=== PATIENT | male | born 1995 | race Caucasian/White ===

== ENCOUNTER 2022-04-19 21:44 | Emergency (ER) | payer SELFPAY ==
[2022-04-19 21:58] VITALS: BP 143/93; PULSE 92; RESP 18; TEMP 36.8; O2SAT 98; BMI 36.1
--- NOTE | 2022-04-19 22:06 | ED_ITS ---
HPI - Burn/Smoke Inhalation General: Chief complaint: Burn/Smoke Inhalation Stated complaint: Burn on right hand, middle finger Time Seen by Provider: 04/19/22 22:03 History of Present Illness: Patient is a 26-year-old male comes to the ED with burn to right middle finger. 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 Some grease splashed up and got on his right middle finger causing some redness, blistering and pain. Patient is not up-to-date on tetanus. Associated symptoms: Deny chest pain, fever(s), headache(s), nausea, neck pain or vomiting Review of Systems Const: Denies: fever(s), chills or fatigue Eyes: Denies: change in vision or eye discomfort ENMT: Denies: throat pain, odynophagia, nasal discharge or nasal congestion Card: Denies: chest pain, palpitations, edema, swelling of feet/ankles, dyspnea on exertion or orthopnea Resp: Denies: dyspnea, productive cough or non-productive cough GI: Denies: abdominal pain, nausea, vomiting, diarrhea, constipation or hematochezia : Denies: flank pain, difficulty urinating, dysuria or hematuria Musc: Denies: neck pain, back pain or extremity swelling Skin/Breast: Reports: new lesions (Second-degree burn to distal end of right middle finger); Denies: rash Neuro: Denies: headache(s), numbness in extremities or weakness in extremities PFS ED PFSH: Medical History No pertinent family history Surgical History No pertinent past surgical history Physical Exam Const: COMMON NORMALS: no acute distress, patient oriented x3, healthy appearing and alert GENERAL APPEARANCE: cooperative and comfortable HENMT: COMMON NORMALS: normocephalic HEAD & SCALP: normocephalic MOUTH: Normal oral and palatal mucosa present THROAT: posterior oropharynx normal and uvula midline Neck/C-Spine: COMMON NORMALS: supple GENERAL: Yes normal visual inspection Resp: COMMON NORMALS: normal respiratory effort, No retractions, No use of accessory muscles and clear to auscultation bilaterally AUSCULTATION: clear to auscultation bilaterally Cardio: COMMON NORMALS: regular rate, regular rhythm, S1 normal heart sound present, S2 normal heart sound present, No gallops present (Cardio), No clicks present (Cardio), No murmurs present (Cardio) and Peripheral pulses 2+ throughout RATE: regular rate RHYTHM: regular rhythm HEART SOUNDS: S1 normal heart sound present and S2 normal heart sound present PERIPHERAL PULSES: Peripheral pulses 2+ throughout GI: COMMON NORMALS: Normal to inspection, nondistended, normoactive bowel sounds present, Soft to palpation, non-tender and no masses PALPATION: Yes Soft to palpation : COMMON NORMALS: Yes no CVA tenderness BLADDER/KIDNEY EXAM: Yes no CVA tenderness Back/Pelvis: COMMON NORMALS: no CVA tenderness Extremity: NARRATIVE EXTREMITY EXAM: Right hand?distal end of middle finger?second-degree burn with intact blister noted. No damage to nail or nailbed noted. GENERAL: Yes normal exam except as noted Neuro: COMMON NORMALS: patient oriented x3 and moves all extremities SENSORIUM/ORIENTATION: Yes alert Skin: GENERAL SKIN EXAM: dry skin Course Vital Signs: Vital signs: Vital Signs Temperature 98.1 F 04/19/22 22:51 Pulse Rate 77 04/19/22 22:51 Respiratory Rate 18 04/19/22 22:51 Blood Pressure 141/79 04/19/22 22:51 Pulse Oximetry 99 04/19/22 22:51 MDM - Burn/Smoke Inhalation Medical Decision Making Patient 26-year-old male who comes to the ED with burn to distal end of right middle finger. Patient was at work and hot grease caused burn to finger. Vitals are stable and patient appears in no acute distress or pain. Patient has second-degree burn with intact blister. Patient was given updated tetanus here in the ED. Triple antibiotic ointment was applied to finger by nurse and then it was bandaged. Patient was stable for discharge home and sent with a prescription for triple antibiotic ointment. He was instructed on how to care for burn. Return to ED precautions given. Patient understood and agreed with plan. Discharge Plan Discharge Patient Disposition: Home Clinical Impression: Second degree burn of finger Qualifiers: Encounter type: initial encounter Laterality: right Qualified Code(s): T23.221A - Burn of second degree of single right finger (nail) except thumb, initial encounter Condition: Stable Prescriptions: New Triple Antibiotic 3.5mg-400 unit- 5,000 unit/gram ointment 1 applic topical DAILY Qty: 28 0RF Rx Instructions: Apply on burn finger daily until completely healed. Discharge Orders: Discharge ED (Routine); Ordered 04/19/22 Ordered By: Elian Caldwell Discharge Diet: Regular Discharge Activity: Increase activity as tolerated Patient Instructions: Second-Degree Burn (ED) Activity Restrictions/Additional Instructions: Follow-up with medical provider as directed. Clean burn with soap and water daily and then apply triple antibiotic ointment and keep burn covered with bandage. Do not pop any of the blisters and let them pop naturally. Return to the ER or your medical provider if condition worsens. Please read and understand discharge instructions. Thank you for choosing [facility] for your healthcare needs today. Please realize this is an emergency room and that we are providing you with a medical screening exam and this may not be complete and all inclusive of all the testing and or work up that you may need to determine your ailment or severity of your illness. It is very important that you follow up as instructed or that you return to the Emergency Department should you have concerns or if your condition changes or worsens in any way. Coding Level of Care Code ED Tests Superintendent for Nate Yarbrough
[2022-04-19] MEDS: neomycin-poly-bacitracin oint 0.9 gm Pkt 1 APPLIC TOPICAL (22:29)
[2022-04-19] MEDS: tetanus-dipt-pertussis 0.5 mL SDV IM (22:30)
[2022-04-19 22:51] VITALS: BP 141/79; PULSE 77; RESP 18; TEMP 36.7; O2SAT 99
== END 2022-04-19 22:53 | disposition home or self-care (01) ==
PROVIDERS: Emergency Provider Physician Assistant
DX: T23.221A Burn of second degree of single right finger (nail) except thumb, initial encounter (principal); X10.2XXA Contact with fats and cooking oils, initial encounter; Y99.0 Civilian activity done for income or pay; Z23 Encounter for immunization
CPT/HCPCS: 90471; 90715; 99283

== ENCOUNTER → 2022-06-28 11:41 | Outpatient (BNVA) | payer MEDICAID, SELFPAY | PROVIDERS: Visit Provider Nurse Practitioner Family | DX: I10 Essential (primary) hypertension (principal); R45.86 Emotional lability; J32.9 Chronic sinusitis, unspecified; F90.9 Attention-deficit hyperactivity disorder, unspecified type | CPT/HCPCS: 80053; 80061; 84443; 85025 ==

== ENCOUNTER → 2022-07-10 12:05 | Outpatient (BNVA) | payer MEDICAID, SELFPAY | PROVIDERS: Visit Provider Nurse Practitioner Family | DX: R10.9 Unspecified abdominal pain (principal); K59.00 Constipation, unspecified; I10 Essential (primary) hypertension | CPT/HCPCS: 80053 ==

== ENCOUNTER 2022-07-19 14:46 | Emergency (ER) | payer MEDICAID, SELFPAY ==
[2022-07-19 15:10] VITALS: BMI 35.5
--- NOTE | 2022-07-19 16:00 | ED_ITS ---
HPI - General Adult General: Chief complaint: General Medical Stated complaint: Splinter in fingers and stomach Time Seen by Provider: 07/19/22 15:23 Source: patient Mode of arrival: ambulatory Limitations: no limitations History of Present Illness: 26-year-old male presents to the ER today for splinters in his hands and also in his abdomen. Patient reports he was working with wood yesterday and felt a large 1 going to his abdomen. He has tried picking it out but been unable to get it out. He reports he has small splinters in his hands. He has not attempted to get these out at this time. Patient reports last tetanus shot is unknown. Review of Systems General: Reports: 10 or more systems reviewed and unremarkable except in HPI and below PFSH ED PFSH: Medical History ADHD Hypertension Mood swings No pertinent family history Surgical History No pertinent past surgical history Social History Smoking and tobacco status: never smoked Alcohol intake: current Alcohol intake frequency: holidays/special occasions only Alcohol type: wine Lives independently: No Household members: significant other and family Marital status: Life Partner Number of children: 3 service: No Current occupational status: employed History of recent travel: No Current gender identity: Male Special [place] needs: No Physical Exam Const: COMMON NORMALS: no acute distress, average body habitus, patient oriented x3, no limitations, healthy appearing, alert and well nourished HENMT: COMMON NORMALS: normocephalic, atraumatic, external ears normal, Normal external nose present and moist oral mucous membranes HEAD & SCALP: normocephalic and atraumatic NOSE: Normal external nose present EXTERNAL EAR: Yes external ears normal Eye: COMMON NORMALS: conjunctivae normal CONJUNCTIVA: Yes conjunctivae normal Resp: COMMON NORMALS: normal respiratory effort EFFORT & INSPECTION: Yes able to speak in complete sentences Cardio: COMMON NORMALS: regular rate and regular rhythm RATE: regular rate RHYTHM: regular rhythm Extremity: COMMON NORMALS: normal to inspection and full ROM Neuro: COMMON NORMALS: patient oriented x3 SENSORIUM/ORIENTATION: Yes alert Psych: COMMON NORMALS: mental status grossly normal, Normal thought process present and cooperative THOUGHT PROCESS: Normal thought process present Skin: NARRATIVE SKIN EXAM: A foreign object was palpated in the left lower abdomen. There is also 3 small splinters noted in patient's hands. No obvious infection. There are abrasions around the foreign body in the abdomen as patient has tried to remove it. Procedures Foreign Body Removal Site: other (abdomen) Description of foreign body: other (piece of wood) Sedation/Analgesia: other (lidocaine with epi) Technique: removal with forceps and incision made to facilitate removal Confirmed by:: direct visualization and palpation Complications: none Course ED course: Patient presents to the ER with several splinters. Patient reports the worst pain is in his abdomen and he has tried removing it so now it is very tender. He also has 3 small ones in his hands. We will attempt removal in the ER today. MDM - General Adult Medical Decision Making See procedure note. A very minimal incision, less than a half of centimeter was made over the tip of the foreign body in the abdomen after administration of lidocaine with epi. Using forceps, the foreign body was removed in its entirety. It was approximately 2-1/2 cm long. Patient tolerated it well. The 3 splinters in the hands were also removed with a 19-gauge needle. Tdap was updated today. Discussed with patient to clean wounds with soapy water once daily. Follow-up with PCP in 1 week. Return to the ER with new or worsening symptoms. Patient verbalized understanding and was in agreement with the treatment plan. Critical Care Time Critical Care Time: Critical Care Time: No Discharge Plan Discharge Patient Disposition: Home Clinical Impression: Splinter in skin Condition: Stable Prescriptions: No Action trazodone 100 mg tablet 100 mg PO DAILY amlodipine 10 mg tablet 10 mg PO DAILY Qty: 90 1RF divalproex [Depakote] 250 mg tablet,delayed release (DR/EC) 250 mg PO DAILY Qty: 90 0RF fluticasone propionate [Flonase Allergy Relief] 50 mcg/actuation spray,suspension 1 spray intranasal BID Qty: 16 2RF Rx Instructions: administer into each nostril cetirizine [Zyrtec] 10 mg tablet 10 mg PO DAILY PRN (Reason: allergy symptoms) Qty: 90 0RF polyethylene glycol 3350 [Miralax] 17 gram/dose powder 4 g PO DAILY 90 Days Qty: 510 1RF Discharge Orders: Discharge ED (Routine); Ordered 07/19/22 Ordered By: Lawanda Alves Discharge Diet: Usual diet Discharge Activity: Resume usual activity Patient Instructions: Opioid Safety, Pain Management Activity Restrictions/Additional Instructions: Keep wound clean. Follow-up with PCP in 7 to 10 days. Return to the ER with new or worsening symptoms. Coding Level of Care Code ED Pan Puller for Nate Yarbrough
[2022-07-19] MEDS: tetanus-dipt-pertussis 0.5 mL SDV IM (16:03)
[2022-07-19 16:23] VITALS: BP 144/90; PULSE 86; RESP 17; TEMP 36.7; O2SAT 98
== END 2022-07-19 16:14 | disposition home or self-care (01) ==
PROVIDERS: Emergency Provider Physician Assistant
DX: S30.851A Superficial foreign body of abdominal wall, initial encounter (principal); W45.8XXA Other foreign body or object entering through skin, initial encounter; I10 Essential (primary) hypertension; Z23 Encounter for immunization
CPT/HCPCS: 10120; 90471; 90715; 99282

== ENCOUNTER → 2022-09-03 16:42 | Outpatient (BNVA) | payer MEDICAID, SELFPAY | PROVIDERS: Visit Provider Nurse Practitioner Family | DX: R50.9 Fever, unspecified (principal); J10.1 Influenza due to other identified influenza virus with other respiratory manifestations | CPT/HCPCS: 87400; 87426 ==

== ENCOUNTER 2022-11-26 08:51 | Emergency (ER) | payer MEDICAID, SELFPAY ==
[2022-11-26 08:58] VITALS: BP 135/59; PULSE 86; RESP 16; TEMP 36.7; O2SAT 99; BMI 37.1
--- NOTE | 2022-11-26 16:22 | W.ED.NAVMDI ---
HPI - Nausea/Vomiting/Diarrhea General: Chief complaint: Nausea/Vomiting/Diarrhea Stated complaint: n/v/d Time Seen by Provider: 11/26/22 08:58 History of Present Illness: Patient reports recently being at [facility] over the weekend. He reports he developed nausea vomiting diarrhea on Friday. He reports that he has been going numerous times a day but today is slightly better although he still vomited and had 1 diarrhea stool today. He denies any fever, chills. He denies any urinary symptoms. He does not think he ate anything bad because everybody ate the same stuff is him and nobody else is ill. He reports that he did drink alcohol but he does not feel like this is a typical hangover. Associated nausea: Yes Associated symtoms: Reports nausea; Denies change in vision, chest pain, dysuria, headache(s), palpitations or syncope Review of Systems Const: Denies: fever(s), chills or body aches Eyes: Denies: change in vision or blurry vision ENMT: Denies: throat pain Card: Denies: chest pain, palpitations, irregular heart rhythm, lightheadedness or syncope Resp: Denies: dyspnea, productive cough or non-productive cough GI: Reports: abdominal pain, nausea and vomiting : Denies: flank pain, dysuria, urinary frequency, urinary urgency or urinary hesitancy Musc: Denies: neck pain or back pain Neuro: Denies: headache(s), numbness in extremities or weakness in extremities PFSH ED PFSH: Medical History ADHD Hypertension Mood swings No pertinent family history Surgical History No pertinent past surgical history Social History Smoking and tobacco status: never smoked Alcohol intake: current Alcohol intake frequency: holidays/special occasions only Alcohol type: wine Lives independently: No Household members: significant other and family Marital status: Life Partner Number of children: 3 service: No Current occupational status: employed Current gender identity: Male Special [place] needs: No Physical Exam Const: COMMON NORMALS: no acute distress, patient oriented x3 and alert GENERAL APPEARANCE: cooperative ORIENTATION/CONSCIOUSNESS: Yes awake, Yes oriented to person, Yes oriented to place and Yes oriented to time HENMT: COMMON NORMALS: EAC's normal and TM's normal bilaterally EXTERNAL AUDITORY CANAL: EAC's normal TYMPANIC MEMBRANE: TM's normal bilaterally MOUTH: Normal oral and palatal mucosa present THROAT: posterior oropharynx normal Eye: COMMON NORMALS: Equal, round and reactive pupils present, EOMs intact bilaterally and conjunctivae normal GENERAL EYE: appearance normal, both eyes and all related structures ALIGNMENT: Yes alignment normal CONJUNCTIVA: Yes conjunctivae normal SCLERA: sclerae normal PUPIL: Yes Equal, round and reactive pupils present Neck/C-Spine: COMMON NORMALS: full ROM Resp: COMMON NORMALS: normal respiratory effort, No retractions, No use of accessory muscles and clear to auscultation bilaterally EFFORT & INSPECTION: Yes symmetric chest movement AUSCULTATION: clear to auscultation bilaterally Cardio: COMMON NORMALS: regular rate, regular rhythm, S1 normal heart sound present and S2 normal heart sound present RATE: regular rate RHYTHM: regular rhythm HEART SOUNDS: S1 normal heart sound present and S2 normal heart sound present GI: COMMON NORMALS: Normal to inspection, nondistended, normoactive bowel sounds present, Soft to palpation, non-tender, No hepatosplenomegaly present, no masses and no bruits INSPECTION: Yes normal to inspection PALPATION: Yes Soft to palpation and Yes No hepatosplenomegaly present : COMMON NORMALS: Yes no CVA tenderness BLADDER/KIDNEY EXAM: Yes no CVA tenderness Back/Pelvis: COMMON NORMALS: no CVA tenderness Neuro: COMMON NORMALS: patient oriented x3 SENSORIUM/ORIENTATION: Yes alert, Yes oriented to person, Yes oriented to place and Yes oriented to time Psych: COMMON NORMALS: cooperative Course Vital Signs: Vital signs: Vital Signs Temperature 98.0 F 11/26/22 08:58 Pulse Rate 86 11/26/22 08:58 Respiratory Rate 16 11/26/22 08:58 Blood Pressure 135/59 11/26/22 08:58 Pulse Oximetry 99 11/26/22 08:58 Oxygen Delivery Me thod 11/26/22 08:58 MDM - Nausea/Vomiting/Diarrhea Medical Decision Making Patient is in for nausea and vomiting. He reports that he has been vomiting but seems to be getting a little bit better today. He does wish to have a work note because he had to miss work due to vomiting. He feels like he is able to keep liquids down at this time. He is requesting to be discharged to home. Discussed conservative treatments at home including a brat diet. Follow-up with primary care provider as needed. Return to the ER for new or worsening symptoms Discharge Plan Discharge Patient Disposition: Home Clinical Impression: Gastroenteritis Condition: Stable Prescriptions: No Action oseltamivir [Tamiflu] 75 mg capsule 75 mg PO BID 5 Days Qty: 10 0RF trazodone 100 mg tablet 100 mg PO DAILY amlodipine 10 mg tablet 10 mg PO DAILY Qty: 90 1RF fluticasone propionate [Flonase Allergy Relief] 50 mcg/actuation spray,suspension 1 spray intranasal BID Qty: 16 2RF Rx Instructions: administer into each nostril cetirizine [Zyrtec] 10 mg tablet 10 mg PO DAILY PRN (Reason: allergy symptoms) Qty: 90 0RF polyethylene glycol 3350 [Miralax] 17 gram/dose powder 4 g PO DAILY 90 Days Qty: 510 1RF divalproex 250 mg tablet,delayed release (DR/EC) See Rx Instructions .ROUTE .COMPLEX Qty: 90 0RF Dose Instruction: TAKE ONE TABLET BY MOUTH DAILY Rx Instructions: TAKE ONE TABLET BY MOUTH DAILY Discharge Orders: Discharge ED (Routine); Ordered 11/26/22 Ordered By: Susanne Maciel Discharge Diet: Advance as tolerated Discharge Activity: Increase activity as tolerated Patient Instructions: Gastroenteritis (ED) Activity Restrictions/Additional Instructions: Make sure that you are staying well-hydrated. I recommend a brat diet (bananas, rice, applesauce, dry toast) to help with vomiting and diarrhea. Follow-up with your primary care provider as needed. Return to the ER for new or worsening symptoms including inability to keep liquids down, abdominal pain, fever, worsening vomiting. Stand Alone Forms: Work/School Release Coding Level of Care Code ED Fire Alarm Mechanic for Nate Yarbrough
== END 2022-11-26 09:39 | disposition home or self-care (01) ==
PROVIDERS: Emergency Provider Nurse Practitioner Family
DX: K52.9 Noninfective gastroenteritis and colitis, unspecified (principal); I10 Essential (primary) hypertension
CPT/HCPCS: 99282

== ENCOUNTER 2022-12-07 17:42 | Emergency (ER) | payer MEDICAID, SELFPAY ==
[2022-12-07 17:44] VITALS: BP 147/92; PULSE 80; RESP 16; TEMP 36.6; O2SAT 97
--- NOTE | 2022-12-07 18:05 | ED_ITS ---
HPI - URI/Sore Throat General: Chief Complaint: Upper Respiratory Infection Stated Complaint: Cough, congestion,not feeling well Time Seen by Provider: 12/07/22 18:04 History of Present Illness: 26-year-old male patient comes in today for complaints of cough and congestion not feeling well for the last 3 days. Patient comes in needing a work note for 2 more days in order to get over this illness. Patient appears nontoxic. Patient appears in mild to no pain. Patient has a history of ADHD and hypertension. Associated symptoms: Reports fever(s) and nasal congestion; Deny chest pain, nausea or vomiting Review of Systems Const: Reports: fever(s) ENMT: Reports: nasal congestion Card: Denies: chest pain Resp: Reports: non-productive cough GI: Denies: nausea or vomiting Skin/Breast: Denies: rash PFSH ED PFSH: Medical History ADHD Hypertension Mood swings No pertinent family history Surgical History No pertinent past surgical history Social History Smoking and tobacco status: never smoked Alcohol intake: current Alcohol intake frequency: holidays/special occasions only Alcohol type: wine Lives independently: No Household members: significant other and family Marital status: Life Partner Number of children: 3 service: No Current occupational status: employed Current gender identity: Male Special [place] needs: No Physical Exam Const: COMMON NORMALS: alert HENMT: COMMON NORMALS: normocephalic and atraumatic HEAD & SCALP: normocephalic and atraumatic NOSE: Normal nares present MOUTH: Normal oral and palatal mucosa present Neck/C-Spine: COMMON NORMALS: full ROM Resp: COMMON NORMALS: normal respiratory effort and clear to auscultation bilaterally AUSCULTATION: clear to auscultation bilaterally Cardio: COMMON NORMALS: regular rate and regular rhythm RATE: regular rate RHYTHM: regular rhythm Extremity: COMMON NORMALS: normal to inspection Neuro: SENSORIUM/ORIENTATION: Yes alert Skin: COMMON NORMALS: no rashes or lesions noted GENERAL SKIN EXAM: no rashes or lesions noted Course Vital Signs: Vital signs: Vital Signs Temperature 97.8 F 12/07/22 17:44 Pulse Rate 80 03/04/23 17:44 Respiratory Rate 16 12/07/22 17:44 Blood Pressure 147/92 12/07/22 17:44 Pulse Oximetry 97 12/07/22 17:44 Oxygen Delivery Me thod 12/07/22 17:44 MDM - URI/Sore Throat Medical Decision Making 26-year-old male patient comes in today for complaints of upper respiratory i nfection. On exam posterior pharynx slightly erythematous. Bilateral TMs are clear. Lungs are clear to auscultation. Skin is warm and dry. Vital signs are normal. Differential diagnosis includes but not limited to viral syndrome, upper respiratory infection, malingering. Reviewed exam with patient with recommendations for treatment and follow-up. Patient reported understanding agreed to plan. Discharge Plan Discharge Patient Disposition: Home Clinical Impression: Upper respiratory infection Qualifiers: URI type: unspecified URI Qualified Code(s): J06.9 - Acute upper respiratory infection, unspecified Condition: Stable Prescriptions: No Action oseltamivir [Tamiflu] 75 mg capsule 75 mg PO BID 5 Days Qty: 10 0RF trazodone 100 mg tablet 100 mg PO DAILY amlodipine 10 mg tablet 10 mg PO DAILY Qty: 90 1RF fluticasone propionate [Flonase Allergy Relief] 50 mcg/actuation spray,suspension 1 spray intranasal BID Qty: 16 2RF Rx Instructions: administer into each nostril cetirizine [Zyrtec] 10 mg tablet 10 mg PO DAILY PRN (Reason: allergy symptoms) Qty: 90 0RF polyethylene glycol 3350 [Miralax] 17 gram/dose powder 4 g PO DAILY 90 Days Qty: 510 1RF divalproex 250 mg tablet,delayed release (DR/EC) See Rx Instructions .ROUTE .COMPLEX Qty: 90 0RF Dose Instruction: TAKE ONE TABLET BY MOUTH DAILY Rx Instructions: TAKE ONE TABLET BY MOUTH DAILY Discharge Orders: Discharge ED (Routine); Ordered 12/07/22 Ordered By: Colt Green Discharge Diet: Usual diet Discharge Activity: Increase activity as tolerated Patient Instructions: Upper Respiratory Infection (ED) Activity Restrictions/Additional Instructions: Drink plenty of water and fluids. Use acetaminophen and/or ibuprofen for pain and fever. Follow-up with primary care as needed. Return to ED for worsening symptoms such as severe chest pain, shortness of breath, or inability to hold fluids down. Stand Alone Forms: Work/School Release Coding Level of Care Code ED Local Company Tanker Driver for Nate Yarbrough
[2022-12-07 18:20] VITALS: PULSE 89; RESP 16; O2SAT 99
--- NOTE | 2022-12-13 13:59 | DCPLANNER ---
12.07.22 - TCM called patient due to no primary care physician - no answer at this time
--- NOTE | 2022-12-13 14:02 | DCPLANNER ---
Addendum entered by Zaria Paz 12/19/22 07:50: Patient had a follow up appointment scheduled at [facility] to establish care with Dr. Ferguson - patient did attend appointment. Original Note: wind farm operations manager called patient due to no primary care - an appointment is scheduled for Sunday, December 18, [address]22 at 10:[address] Ferguson at [facility]. Patient is aware of appointment.
== END 2022-12-07 18:20 | disposition home or self-care (01) ==
PROVIDERS: Emergency Provider Nurse Practitioner Family
DX: J06.9 Acute upper respiratory infection, unspecified (principal)
CPT/HCPCS: 99282

== ENCOUNTER → 2022-12-18 11:31 | Outpatient (BNVA) | payer MEDICAID, SELFPAY | PROVIDERS: PCP Family Medicine; Visit Provider Family Medicine | DX: I10 Essential (primary) hypertension (principal); R45.86 Emotional lability; Z72.51 High risk heterosexual behavior; Z11.3 Encounter for screening for infections with a predominantly sexual mode of transmission; N48.9 Disorder of penis, unspecified | CPT/HCPCS: 86695; 86696 ==

== ENCOUNTER → 2022-12-18 11:31 | Outpatient (BNVA) | payer MEDICAID, SELFPAY | PROVIDERS: PCP Family Medicine; Visit Provider Family Medicine | DX: I10 Essential (primary) hypertension (principal); R45.86 Emotional lability; Z72.51 High risk heterosexual behavior; N48.9 Disorder of penis, unspecified; Z30.09 Encounter for other general counseling and advice on contraception; Z11.3 Encounter for screening for infections with a predominantly sexual mode of transmission | CPT/HCPCS: 80053; 80061; 85025; 86695; 86696; 87491; 87591; 87806 ==

== ENCOUNTER 2022-12-19 19:59 | Emergency (ER) | payer MEDICAID, SELFPAY ==
[2022-12-19 20:14] VITALS: BP 168/108; PULSE 78; RESP 16; TEMP 36.7; O2SAT 97; BMI 37.4
[2022-12-19 20:46] VITALS: O2SAT 97
[2022-12-19 21:08] LABS: Influenza A by IFA negative (Negative); Influenza B by IFA negative (Negative); SARS Covid-2 Antigen negative (Negative)
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
[2022-12-19 21:50] VITALS: RESP 17
== END 2022-12-19 21:51 | disposition home or self-care (01) ==
PROVIDERS: Emergency Medicine; Emergency Provider Nurse Practitioner Family; PCP Family Medicine
DX: J06.9 Acute upper respiratory infection, unspecified (principal); Z20.822 Contact with and (suspected) exposure to COVID-19; F17.290 Nicotine dependence, other tobacco product, uncomplicated; I10 Essential (primary) hypertension
CPT/HCPCS: 87426; 87804; 99283

== ENCOUNTER → 2024-05-06 10:10 | Outpatient (BNVA) | payer OTHER, SELFPAY | PROVIDERS: PCP Family Medicine; Visit Provider Psychiatry & Neurology Psychiatry | DX: F63.81 Intermittent explosive disorder (principal); F33.1 Major depressive disorder, recurrent, moderate; F12.20 Cannabis dependence, uncomplicated; Z79.899 Other long term (current) drug therapy | CPT/HCPCS: 80061; 83036 ==

== ENCOUNTER 2025-03-09 18:16 | Emergency (ER) | payer MEDICAID, SELFPAY ==
[2024-05-12 16:29] VITALS: BP 135/81; BMI 37.2
[2025-03-09 18:23] VITALS: BP 125/79; PULSE 103; RESP 16; TEMP 36.7; O2SAT 99
--- NOTE | 2025-03-09 18:49 | XRR_ITS ---
PROCEDURE INFORMATION: Exam: XR Left Hand Exam date and time: 03/09/2025 6:52 PM Age: 29 years old Clinical indication: Injury or trauma; Fall; Sprain or strain; Hand; Left TECHNIQUE: Imaging protocol: Radiologic exam of the left hand. Views: 3 or more views. COMPARISON: No relevant prior studies available. FINDINGS: Bones/joints: Mildly displaced intra-articular fracture at the lateral base of the 2nd metacarpal. Soft tissues: Soft tissue swelling of the left hand. XR/XR hand LT min 3V* [id number] IMPRESSION: Mildly displaced intra-articular fracture at the lateral base of the 2nd metacarpal.
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
--- NOTE | 2025-03-11 09:35 | DCPLANNER ---
messaged ortho for er f/u
== END 2025-03-09 19:57 | disposition home or self-care (01) ==
PROVIDERS: Emergency Provider Physician Assistant; PCP Family Medicine
DX: S62.311A Displaced fracture of base of second metacarpal bone, left hand, initial encounter for closed fracture (principal); F17.290 Nicotine dependence, other tobacco product, uncomplicated; W06.XXXA Fall from bed, initial encounter
CPT/HCPCS: 29125; 73130; 99283

== ENCOUNTER → 2025-03-18 10:03 | Outpatient (BNVA) | payer MEDICAID, SELFPAY ==
[2024-05-12 16:29] VITALS: BP 135/81; BMI 37.2
== END ==
PROVIDERS: PCP Family Medicine; Visit Provider Orthopaedic Surgery
DX: S62.301A Unspecified fracture of second metacarpal bone, left hand, initial encounter for closed fracture (principal); W06.XXXA Fall from bed, initial encounter
CPT/HCPCS: 73130

== ENCOUNTER → 2025-04-11 11:07 | Outpatient (BNVA) | payer MEDICAID, SELFPAY ==
[2024-05-12 16:29] VITALS: BP 135/81; BMI 37.2
== END ==
PROVIDERS: PCP Family Medicine; Visit Provider Orthopaedic Surgery
DX: S62.301A Unspecified fracture of second metacarpal bone, left hand, initial encounter for closed fracture (principal); X58.XXXA Exposure to other specified factors, initial encounter
CPT/HCPCS: 73130

== ENCOUNTER 2025-05-09 15:36 | Emergency (ER) | payer MEDICAID, SELFPAY ==
[2024-05-12 16:29] VITALS: BP 135/81; BMI 37.2
--- OUTSIDE RECORDS SUMMARY | 2025-05-09 15:42 | XMS_ITS | Patient Health Record ---
Author Organization [facility] Address [address] [place] [address] [place] [address] Care Team Providers Care Bell Cleaner Name Role Phone HEALTHDR. Primary Care Provider Allergies No Known Allergies Reason For Referral No Information Medications Medication SIG (Take, Route, Frequency, Duration) Notes Start Date End Date Status Divalproex Sodium 250 MG TAKE 1 TABLET B Y MOUTH EVERY DAY; Duration: 30 Active Strattera 40 MG 1 capsule in the mor navid Orally Once a day Active amLODIPine Besylate 10 MG 1 tablet Orall y Once a day; Duration: 30 day(s) Active traZODone HCl 100 MG 1 -2 tablet at bedt carlo Orally Once a day Active Atomoxetine HCl 40 MG TAKE 1 CAPSULE BY MOUTH EVERY DAY IN THE MORNING; Duration: 30 Active Lisinopril 10 MG 1 tablet Orally Once a day; Duration: 30 day(s) 01/31/2022 Active Social History Tobacco Use: Social History Observation Description Date Details (start date - stop date) Unknown Sex Assigned At : Social History Observation Description Sex Assigned At Male Tobacco Use/Smoking Question Answer Notes Tobacco use: Uses tobacco in other forms Tobacco use other than smoking: Question Answer Notes Are you an other tobacco user? v ape Section Notes: PATIENT VAPES PATIENT VAPES Problems Problem Type SNOMED Code ICD Code Onset Dates Problem Status W/U Status Risk Notes Problem Vitamin D deficiency (78970381) Vitamin D deficiency, unspecified (E55.9) Active confirmed Problem Obesity (844341544) Obesity, unspecified (E66.9) Active confirmed Problem Mixed hyperlipidemia (258468100) Mixed hyperlipidemia (E78.2) Active confirmed Problem Affective psychosis (374965592) Unspecified mood [affective] disorder (F39) Active confirmed Problem Attention deficit hyperactivity disorder, combined type (68619600) Attention-deficit hyperactivity disorder, combined type (F90.2) Active confirmed Problem Essential hypertension (21465768) Essential (primary) hypertension (I10) Active confirmed Problem Dietary management surveillance (513041218) Dietary counseling and surveillance (Z71.3) Active confirmed Problem Tobacco use (605991464) Tobacco use (Z72.0) Active confirmed Problem Body mass index 40+ - morbidly obese (948528760) BMI 40.0-44.9, adult (Z68.41) Active confirmed Problem Body mass index 40+ - severely obese (919915601) BMI 45.0-49.9, adult (Z68.42) Active confirmed Problem Obese class II (145827636726754) BMI 37.0-37.9, adult (Z68.37) Active confirmed Plan Of Treatment Pending Test Test Name Order Date *Venipuncture 07/17/2021 Future Test Test Name Order Date Lipid Panel-[id number] 08/01/2022 Hepatic Function Panel (LFT)-[id number] 07/07 Insurance Providers Payer Name Payer Address Payer Phone Subscriber Number Group Number Insured Name Patient Relationship to Insured Coverage Start Date Coverage End Date [facility] [address] [place] [address] [id number] Mayco Mancini Self - patient is the insured 6 [facility] [address] [place] [address] [id number] Mayco Mancini Self - patient is the insured 6 Medical (General) History Medical History History ICD Code Attention-deficit hyperactivity disorder , combined type F90.2 Unspecified mood [affective] disorder F3 9 Tobacco use Z72.0 hypertension MENTAL ILLNESS (BIPOLAR, SCHIZOPHRENIA, ETC.) Surgical History Surgery Date(Month/Year) WISDOM TEETH tonsillectomy EAR DRUM REPAIR testicular repair Hospitalization History Reason Date(Month/Year) [facility] (02/2021 T [facility] 04/2021) 02/2021
[2025-05-09 15:44] VITALS: BP 127/83; PULSE 91; RESP 17; TEMP 36.7; O2SAT 100; BMI 41.1
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
[2025-05-09 15:57] LABS: Hematocrit 43.9 % (37-53); Hemoglobin 14.90 g/dL (11.27-16.99); Mean Corpuscular HGB Conc 33.9 g/dL (30-55); Mean Corpuscular Hemoglobin 29.7 pg (27-33); Mean Corpuscular Volume 87.6 fl (82-101); Nucleated Red Blood Cells % 0 %; Platelet Count 264 10^3/cmm (157-399); Red Blood Count 5.01 10^6/uL (3.85-5.65); White Blood Count 9.95 10^3/uL (3.29-11.43)
[2025-05-09 16:13] LABS: Alanine Aminotransferase 16 U/L (0-41); Albumin Level 4.3 g/dL (3.5-5.2); Alkaline Phosphatase 96 U/L (40-130); Anion Gap 16.0 (5-19); Aspartate Amino Transferase 16 U/L (0-40); Blood Urea Nitrogen 14 mg/dL (6-20); Calcium 9.6 mg/dL (8.5-10.5); Carbon Dioxide 24 mmol/L (22-29); Chloride 104 mmol/L (98-107); Creatinine Clr Calc Pharmacy 144.8249; Globulin 2.8 g/dL (1.3-4.6); Glucose 92 mg/dL (65-115); Lipase 25 U/L (13-60); Osmolality Calculated 290 mOsm/kg (285-295); Potassium 4.0 mmol/L (3.5-5.1); Sodium 140 mmol/L (136-145); Total Protein 7.1 g/dL (6.6-8.7)
[2025-05-09] MEDS: ondansetron 2 mg/ML SDV 2 mL 4 MG IVP (16:21)
[2025-05-09 17:39] VITALS: BP 128/86; PULSE 83; O2SAT 96
== END 2025-05-09 17:42 | disposition home or self-care (01) ==
PROVIDERS: Physician Assistant; Emergency Provider Family Medicine; PCP Family Medicine
DX: K52.9 Noninfective gastroenteritis and colitis, unspecified (principal); Z87.891 Personal history of nicotine dependence; I10 Essential (primary) hypertension
CPT/HCPCS: 36415; 80053; 83690; 85025; 96374; 99284; J2405; J7030

== ENCOUNTER 2025-06-15 13:39 | Emergency (ER) | payer MEDICAID, SELFPAY ==
[2024-05-12 16:29] VITALS: BP 135/81; BMI 37.2
[2025-06-15 13:44] VITALS: BP 119/74; PULSE 101; RESP 14; TEMP 36.5; O2SAT 97
[2025-06-15 14:22] LABS: Hematocrit 45.4 % (37-53); Hemoglobin 15.30 g/dL (11.27-16.99); Mean Corpuscular HGB Conc 33.7 g/dL (30-55); Mean Corpuscular Hemoglobin 30.4 pg (27-33); Mean Corpuscular Volume 90.3 fl (82-101); Nucleated Red Blood Cells % 0 %; Platelet Count 248 10^3/cmm (157-399); Red Blood Count 5.03 10^6/uL (3.85-5.65); White Blood Count 10.96 10^3/uL (3.29-11.43)
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
[2025-06-15 14:40] LABS: Alanine Aminotransferase 16 U/L (0-41); Albumin Level 4.3 g/dL (3.5-5.2); Alkaline Phosphatase 87 U/L (40-130); Anion Gap 16.2 (5-19); Aspartate Amino Transferase 13 U/L (0-40); Blood Urea Nitrogen 17 mg/dL (6-20); Calcium 9.7 mg/dL (8.5-10.5); Carbon Dioxide 25 mmol/L (22-29); Chloride 100 mmol/L (98-107); Creatinine Clr Calc Pharmacy 128.3845; Globulin 2.7 g/dL (1.3-4.6); Glucose 102 mg/dL (65-115); Lipase 27 U/L (13-60); Osmolality Calculated 286 mOsm/kg (285-295); Potassium 4.2 mmol/L (3.5-5.1); Sodium 137 mmol/L (136-145); Total Protein 7.0 g/dL (6.6-8.7)
[2025-06-15] MEDS: ondansetron 2 mg/ML SDV 2 mL 4 MG IVP (14:50)
[2025-06-15 15:22] LABS: Glucose Urine UA Negative (Normal); Nitrate Urine Negative (Negative); Specific Gravity, Urine 1.026 (1.005-1.030)
[2025-06-15 15:28] LABS: UA Slide Review UA Slide Review Perf
[2025-06-15 15:30] VITALS: BP 105/80; PULSE 85; O2SAT 99
[2025-06-15 16:14] VITALS: BP 105/62; PULSE 80; O2SAT 95
== END 2025-06-15 16:14 | disposition home or self-care (01) ==
PROVIDERS: Emergency Medicine; Emergency Provider Physician Assistant; PCP Family Medicine
DX: K52.9 Noninfective gastroenteritis and colitis, unspecified (principal); Z87.891 Personal history of nicotine dependence
CPT/HCPCS: 36415; 80053; 81001; 83690; 85025; 86140; 96374; 96375; 99284; J1885; J2405; J7030

== ENCOUNTER 2025-06-20 07:50 | Emergency (ER) | payer MEDICAID, SELFPAY ==
[2024-05-12 16:29] VITALS: BP 135/81; BMI 37.2
--- NOTE | 2025-06-20 07:52 | CT_ITS ---
WS: [id number] CT ABDOMEN AND PELVIS WITH CONTRAST HISTORY: Nausea and vomiting. Diarrhea, abdominal pain. TECHNIQUE: Imaging performed of the abdomen and pelvis with IV contrast. Single phase imaging of the abdomen. Coronal and sagittal reformats are submitted. All CT scans at [facility] [place] use at least one of these dose optimization techniques: automated exposure control; mA and/or kV adjustment per patient size (includes targeted exams where dose is matched to clinical indication); or iterative reconstruction. IV CONTRAST: Omnipaque 350; 100 mL IV. Oral contrast: Yes. DLP: 1078.33 mGy.cm COMPARISON: None available. Lower thorax: Lung bases are clear. Heart is normal size. No hiatal hernia. Liver/biliary system: Normal size with no intrahepatic dilatation. Gallbladder: Normal. No gallstones or wall thickening. No pericholecystic fluid. Pancreas: Normal size pancreas and pancreatic duct. No adjacent inflammation. Spleen: Normal size spleen. No mass or infarct. Adrenal glands: Normal. Right kidney: Normal. Left kidney: Normal. Aorta: Normal. Lymphadenopathy: None. Free fluid: None. GI tract: No obstruction of the GI tract. Normal small bowel. Normal appendix. No colitis. No obstruction. Abdominal wall: Fat containing umbilical hernia. Pelvis: No free fluid or adenopathy within the pelvis. Bones: Unremarkable. CT/CT abdomen pelvis w con* [id number] IMPRESSION: 1. No acute abdominal or pelvic abnormalities identified. 2. No GI tract or renal obstruction. 3. Normal appearance of the gallbladder. 4. No ascites or adenopathy. No colitis. 5. Normal appendix.
[2025-06-20 08:09] VITALS: BP 143/85; PULSE 98; RESP 16; TEMP 36.6; O2SAT 98; BMI 40.3
[2025-06-20 08:11] VITALS: BP 129/78; PULSE 77; RESP 18; O2SAT 98
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
[2025-06-20 08:35] LABS: Hematocrit 44.7 % (37-53); Hemoglobin 15.20 g/dL (11.27-16.99); Mean Corpuscular HGB Conc 34.0 g/dL (30-55); Mean Corpuscular Hemoglobin 29.7 pg (27-33); Mean Corpuscular Volume 87.5 fl (82-101); Nucleated Red Blood Cells % 0 %; Platelet Count 234 10^3/cmm (157-399); Red Blood Count 5.11 10^6/uL (3.85-5.65); White Blood Count 6.80 10^3/uL (3.29-11.43)
[2025-06-20] MEDS: iohexol 350 mg/mL 500 mL Btl (per mL) IV (08:39)
[2025-06-20 08:46] LABS: Glucose Urine UA Negative (Normal); Nitrate Urine Negative (Negative); Specific Gravity, Urine 1.017 (1.005-1.030)
[2025-06-20 08:48] LABS: Add Urine Microscopic? YES
[2025-06-20 08:49] LABS: Alanine Aminotransferase 20 U/L (0-41); Albumin Level 4.3 g/dL (3.5-5.2); Alkaline Phosphatase 96 U/L (40-130); Anion Gap 15.6 (5-19); Aspartate Amino Transferase 15 U/L (0-40); Blood Urea Nitrogen 16 mg/dL (6-20); Calcium 9.0 mg/dL (8.5-10.5); Carbon Dioxide 23 mmol/L (22-29); Chloride 105 mmol/L (98-107); Creatinine Clr Calc Pharmacy 184.2054; Globulin 2.8 g/dL (1.3-4.6); Glucose 103 mg/dL (65-115); Lipase 20 U/L (13-60); Magnesium 1.8 mg/dL (1.7-2.3); Osmolality Calculated 289 mOsm/kg (285-295); Potassium 4.6 mmol/L (3.5-5.1); Sodium 139 mmol/L (136-145); Total Protein 7.1 g/dL (6.6-8.7)
== END 2025-06-20 10:22 | disposition home or self-care (01) ==
PROVIDERS: Emergency Provider Family Medicine; PCP Family Medicine
DX: R11.2 Nausea with vomiting, unspecified (principal); F12.90 Cannabis use, unspecified, uncomplicated; Z87.891 Personal history of nicotine dependence; I10 Essential (primary) hypertension
CPT/HCPCS: 36415; 74177; 80053; 81001; 83690; 83735; 85025; 99285; J7030

== ENCOUNTER 2025-07-18 07:07 | Emergency (ER) | payer MEDICAID, SELFPAY ==
[2024-05-12 16:29] VITALS: BP 135/81; BMI 37.2
[2025-07-18 07:11] VITALS: BP 149/84; PULSE 93; RESP 17; TEMP 36.7; O2SAT 99; BMI 40.3
--- OUTSIDE RECORDS SUMMARY | 2025-07-18 07:17 | XMS_ITS | Patient Health Record ---
Author Organization [facility] Address [address] [place] [address] [place] [address] Care Team Providers Care Laser Printing Operator Name Role Phone HEALTHDR. Primary Care Provider [...] Status Risk Notes Problem Vitamin D deficiency (85375911) Vitamin D deficiency, unspecified (E55.9) Active confirmed Problem Obesity (129697772) Obesity, unspecified (E66.9) Active confirmed Problem Mixed hyperlipidemia (277153717) Mixed hyperlipidemia (E78.2) Active confirmed Problem Affective psychosis (905282646) Unspecified mood [affective] disorder (F39) Active confirmed Problem Attention deficit hyperactivity disorder, combined type (26865619) Attention-deficit hyperactivity disorder, combined type (F90.2) Active confirmed Problem Essential hypertension (09856385) Essential (primary) hypertension (I10) Active confirmed Problem Dietary management surveillance (214057888) Dietary counseling and surveillance (Z71.3) Active confirmed Problem Tobacco use (549486348) Tobacco use (Z72.0) Active confirmed Problem Body mass index 40+ - morbidly obese (035588690) BMI 40.0-44.9, adult (Z68.41) Active confirmed Problem Body mass index 40+ - severely obese (834938819) BMI 45.0-49.9, adult (Z68.42) Active confirmed Problem Obese class II (841791562411439) BMI 37.0-37.9, adult (Z68.37) Active confirmed Plan Of Treatment Pending Test Test Name Order Date *Venipuncture 07/17/2021 Future Test Test Name Order Date Lipid Panel-610895 08/01/2022 Hepatic Function Panel (LFT)-911445 07/07 Insurance Providers Payer Name Payer Address Payer Phone Subscriber Number Group Number Insured Name Patient Relationship to Insured Coverage Start Date Coverage End Date [facility] [address] [facility] [place] [place] [address] [id number] Mayco Mancini Self - patient is the insured 6 [facility] [address] [place] [address] [id number] Mayco Mancini Self - patient is the insured 6 Medical (General) History Medical History History ICD Code Attention-deficit hyperactivity disorder , combined type F90.2 Unspecified mood [affective] disorder F3 9 Tobacco use Z72.0 hypertension MENTAL ILLNESS (BIPOLAR, SCHIZOPHRENIA, ETC.) Surgical History Surgery Date(Month/Year) WISDOM TEETH tonsillectomy EAR DRUM REPAIR testicular repair Hospitalization History Reason Date(Month/Year) [facility] (02/2021 T [facility] 04/2021) 02/2021
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
[2025-07-18] MEDS: tetracaine 0.5% Op Soln 4 mL Btl 1 DROP EYE-RIGHT (07:58)
== END 2025-07-18 09:14 | disposition home or self-care (01) ==
PROVIDERS: Emergency Provider Family Medicine; PCP Family Medicine
DX: S05.01XA Injury of conjunctiva and corneal abrasion without foreign body, right eye, initial encounter (principal); X58.XXXA Exposure to other specified factors, initial encounter
CPT/HCPCS: 99283; J9999

== ENCOUNTER 2025-08-13 12:53 | Emergency (ER) | payer MEDICAID, SELFPAY ==
[2024-05-12 16:29] VITALS: BP 135/81; BMI 37.2
--- OUTSIDE RECORDS SUMMARY | 2025-08-13 12:58 | XMS_ITS | Patient Health Record ---
Author Organization [facility] Address [address] [place] [address] [place] [address] Care Team Providers Care Printed Circuit Boards Solder Leveler Name Role Phone HEALTHDR. Primary Care Provider [phone] Allergies No Known Allergies Reason For Referral [...] Status Risk Notes Problem Vitamin D deficiency (15758632) Vitamin D deficiency, unspecified (E55.9) Active confirmed Problem Obesity (994284805) Obesity, unspecified (E66.9) Active confirmed Problem Mixed hyperlipidemia (151467812) Mixed hyperlipidemia (E78.2) Active confirmed Problem Affective psychosis (295977047) Unspecified mood [affective] disorder (F39) Active confirmed Problem Attention deficit hyperactivity disorder, combined type (53474878) Attention-deficit hyperactivity disorder, combined type (F90.2) Active confirmed Problem Essential hypertension (80703647) Essential (primary) hypertension (I10) Active confirmed Problem Dietary management surveillance (429072495) Dietary counseling and surveillance (Z71.3) Active confirmed Problem Tobacco use (378017860) Tobacco use (Z72.0) Active confirmed Problem Body mass index 40+ - morbidly obese (201973261) BMI 40.0-44.9, adult (Z68.41) Active confirmed Problem Body mass index 40+ - severely obese (929649823) BMI 45.0-49.9, adult (Z68.42) Active confirmed Problem Obese class II (926398005168616) BMI 37.0-37.9, adult (Z68.37) Active confirmed Plan Of Treatment Pending Test Test Name Order Date *Venipuncture 07/17/2021 Future Test Test Name Order Date Lipid Panel-012099 08/01/2022 Hepatic Function Panel (LFT)-509939 07/07 Insurance Providers Payer Name Payer Address Payer Phone Subscriber Number Group Number Insured Name Patient Relationship to Insured Coverage Start Date Coverage End Date [facility] [address] [place] [address] [id number] Mayco Mancini Self - patient is the insured 6 [facility] [address] [place] [address] [id number] Mayco Mancini Self - patient is the insured 6 Medical (General) History Medical History History ICD Code Attention-deficit hyperactivity disorder , combined type F90.2 Unspecified mood [affective] disorder F3 9 Tobacco use Z72.0 hypertension MENTAL ILLNESS (BIPOLAR, SCHIZOPHRENIA, ETC.) Surgical History Surgery Date(Month/Year) WISDOM TEETH tonsillectomy EAR DRUM REPAIR testicular repair Hospitalization History Reason Date(Month/Year) [facility] (02/2021 T [facility] 04/2021) 02/2021
[2025-08-13 13:40] VITALS: BP 163/122; PULSE 109; RESP 16; TEMP 36.8; O2SAT 100
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
[2025-08-13] MEDS: HYDROcodone-acetaminophen 7.5-325 mg Tablet 1 TAB PO (16:42)
[2025-08-13 17:28] VITALS: BP 138/73; PULSE 108; O2SAT 98
== END 2025-08-13 17:29 | disposition home or self-care (01) ==
PROVIDERS: Emergency Provider Physician Assistant; PCP Family Medicine
DX: S40.022A Contusion of left upper arm, initial encounter (principal); S29.012A Strain of muscle and tendon of back wall of thorax, initial encounter; S09.8XXA Other specified injuries of head, initial encounter; V89.2XXA Person injured in unspecified motor-vehicle accident, traffic, initial encounter; Z87.891 Personal history of nicotine dependence; I10 Essential (primary) hypertension
CPT/HCPCS: 70450; 72125; 72128; 73060; 99284; J9999